=== PATIENT | female | born 1985 | race American Indian/Alaskan Native ===

== ENCOUNTER 2016-03-15 11:25 | Outpatient (CLI) | payer MEDICAID ==
--- NOTE | 2016-03-16 10:11 | Ultrasound Report ---
OB LIMITED: HISTORY: Premature rupture of membranes. TECHNIQUE: Transabdominal ultrasound with color Doppler interrogation. Gestation: tsai Position: cephalic Amniotic Fluid: SEEMA = 8.6 cm Heart Rate: 133 BPM
== END 2016-03-15 15:15 | disposition home or self-care (01) ==
LOC: TRG 11:25
PROVIDERS: ATTEND Obstetrics & Gynecology Gynecology
DX: O42.90 Premature rupture of membranes, unspecified as to length of time between rupture and onset of labor, unspecified weeks of gestation (principal); O47.9 False labor, unspecified; Z3A.00 Weeks of gestation of pregnancy not specified
CPT/HCPCS: 59025; 76815

== ENCOUNTER 2016-03-15 20:25 | Inpatient (IN) | payer MEDICAID ==
[2016-03-15] MEDS ORDERED: BRETHINE IVP PRN (22:14)
[2016-03-15] MEDS ORDERED: ZOFRAN IV PRN (22:14)
[2016-03-15] MEDS ORDERED: XYLOCAINE 2% INFILTRATI ONE (22:14)
[2016-03-15] MEDS ORDERED: POLYCILLIN/NS 2 GM/100 ML 2 GM/100 ML BAG IV ONE (22:14)
[2016-03-15] MEDS ORDERED: SUBLIMAZE IV PRN (22:14)
[2016-03-15] MEDS ORDERED: BRETHINE SUB-Q PRN (22:14)
[2016-03-15] MEDS ORDERED: ePHEDrine SULFATE IV PRN (22:14)
[2016-03-15] MEDS ORDERED: MINERAL OIL PO PRN (22:14)
--- NOTE | 2016-03-15 22:14 | History and Physical Report ---
History of Present Illness Date of examination: 03/15/16 Chief complaint: SROM History of present illness: 30-year-old 002 at 3905 presents with ruptured membranes, she is [facility] [employer] patient. care unremarkable per patient, she is GBS positive Past History Past Medical History: no pertinent history Past Surgical History: no surgical history [employer] INS[employer]OR History: denies: chlamydia, gonorrhea, hepatitis B, hepatitis C, herpes, HIV , syphilis Social history: single, full code. denies: smoking, alcohol abuse, prescription drug abuse, IV drug use - Obstetrical History Expected Date of Delivery: 03/17/16 Actual Gestation: 39 Week(s) 5 Day(s) : 3 Para: 2 Medications and Allergies Allergies Allergy/AdvReac Type Severity Reaction Status Date / Time No Known Allergies Allergy Unverified 03/15/16 20:38 Review of Systems Constitutional: no fever, no chills Cardiovascular: no chest pain, no orthopnea, no syncope, no lightheadedness, no shortness of breath, no dyspnea on exertion, no high blood pressure Respiratory: no shortness of breath, no dyspnea on exertion Gastrointestinal: abdominal pain (Painful contractions), no nausea, no vomiting , no diarrhea Genitourinary: leakage of fluid, no vaginal bleeding, no vaginal discharge, no dysuria - Vital Signs Vital signs: Vital Signs Pulse BP Pulse Ox 94 H 136/93 97 03/15/16 20:45 03/15/16 20:45 03/15/16 20:45 Temp Pulse Resp BP Pulse Ox 97 H 133/83 99 03/15/16 21:33 03/15/16 21:31 03/15/16 21:33 - Physical Exam Abdomen: Positive: normal appearance, soft. Negative: distention, tenderness, guarding, rigidity Genitourinary (Female): Positive: normal external genitalia Uterus: Positive: enlarged (EFW ~ 3600). Negative: tender Adnexa: both: normal Extremities: Positive: normal - Obstetrical FHR: category 1 Cervical Dilatation: 2.5 (per RN) Results All other labs normal. Assessment and Plan A: 30 y/o at 39+5 wks with SROM -Cat 1 tracing P: -Admit -Obtain routine labs -GBS prophylaxis' -Epidural prn -Anticipate - Patient Problems (1) with 39 completed weeks gestation Current Visit: Yes Status: Acute (2) Spontaneous rupture of amniotic membranes Current Visit: Yes Status: Acute
[2016-03-15 22:39] LABS: Hematocrit 30.9 % (30.3-42.9); Hemoglobin 10.1 gm/dl (10.1-14.3); Mean Corpuscular HGB Conc 33 % (30-34); Mean Corpuscular Volume 79 fl (79-97); Platelet Count 169 K/mm3 (140-440); Red Blood Count 3.91 M/mm3 (3.65-5.03); Red Cell Distribution Width 16.7 % (13.2-15.2); White Blood Count 9.1 K/mm3 (4.5-11.0)
[2016-03-15 22:46] LABS: Mean Corpuscular Hemoglobin 26 pg (28-32)
[2016-03-15] MEDS: LACTATED RINGERS 1,000 ML IV SCH (22:52)
[2016-03-15] MEDS ORDERED: PITOCin/NS 30 UNIT/500ML 30 UNIT/500 ML BAG IV SCH (23:00)
[2016-03-15] MEDS ORDERED: PITOCin/NS 20 UNIT/1000ML DRIP 20 UNIT/1,000 ML BAG IV SCH (23:00)
[2016-03-16] MEDS ORDERED: POLYCILLIN/NS 1 GM/50 ML 1 GM/50 ML BAG IV SCH (02:16)
[2016-03-16] MEDS ORDERED: BENADRYL PO ONE (02:31)
[2016-03-16] MEDS: PITOCin/NS 30 UNIT/500ML 30 UNIT/500 ML BAG IV SCH ×3 (06:15→07:17)
--- NOTE | 2016-03-16 06:58 | Progress Note ---
Assessment and Plan - Patient Problems (1) with 39 completed weeks gestation Current Visit: Yes Status: Acute (2) Spontaneous rupture of amniotic membranes Current Visit: Yes Status: Acute Subjective - Subjective Date of service: 03/16/16 Patient reports: movement normal, contractions, no loss of fluid, no vaginal bleeding Objective - Vital Signs Vital Signs: Vital Signs - 12hr 03/15/16 03/15/16 03/15/16 20:45 20:46 20:47 Temperature Pulse Rate 97 H 107 H 96 H Respiratory Rate Blood Pressure 136/93 Blood Pressure [Left Arm] O2 Sat by Pulse 98 98 97 Oximetry 03/15/16 03/15/16 03/15/16 20:48 20:49 20:50 Temperature Pulse Rate 98 H 100 H 98 H Respiratory Rate Blood Pressure Blood Pressure [Left Arm] O2 Sat by Pulse 98 97 98 Oximetry 03/15/16 03/15/16 03/15/16 20:51 20:52 20:53 Temperature Pulse Rate 97 H 108 H 102 H Respiratory Rate Blood Pressure Blood Pressure [Left Arm] O2 Sat by Pulse 98 98 99 Oximetry 03/15/16 03/15/16 03/15/16 20:54 20:55 20:56 Temperature Pulse Rate 98 H 110 H 121 H Respiratory Rate Blood Pressure Blood Pressure [Left Arm] O2 Sat by Pulse 99 99 99 Oximetry 03/15/16 03/15/16 03/15/16 20:57 20:58 20:59 Temperature Pulse Rate 101 H 98 H 105 H Respiratory Rate Blood Pressure Blood Pressure [Left Arm] O2 Sat by Pulse 98 99 98 Oximetry 03/15/16 03/15/16 03/15/16 21:00 21:01 21:02 Temperature Pulse Rate 91 H 97 H 94 H Respiratory Rate Blood Pressure Blood Pressure [Left Arm] O2 Sat by Pulse 98 98 97 Oximetry 03/15/16 03/15/16 03/15/16 21:03 21:04 21:05 Temperature Pulse Rate 94 H 96 H 93 H Respiratory Rate Blood Pressure Blood Pressure [Left Arm] O2 Sat by Pulse 97 97 97 Oximetry 03/15/16 03/15/16 03/15/16 21:06 21:07 21:08 Temperature Pulse Rate 93 H 89 88 Respiratory Rate Blood Pressure Blood Pressure [Left Arm] O2 Sat by Pulse 97 96 97 Oximetry 03/15/16 03/15/16 03/15/16 21:09 21:10 21:11 Temperature Pulse Rate 93 H 96 H 102 H Respiratory Rate Blood Pressure Blood Pressure [Left Arm] O2 Sat by Pulse 97 97 97 Oximetry 03/15/16 03/15/16 03/15/16 21:12 21:13 21:14 Temperature Pulse Rate 88 96 H 94 H Respiratory Rate Blood Pressure Blood Pressure [Left Arm] O2 Sat by Pulse 98 98 98 Oximetry 03/15/16 03/15/16 03/15/16 21:15 21:16 21:17 Temperature Pulse Rate 92 H 90 86 Respiratory Rate Blood Pressure Blood Pressure [Left Arm] O2 Sat by Pulse 99 99 99 Oximetry 03/15/16 03/15/16 03/15/16 21:18 21:19 21:20 Temperature Pulse Rate 89 89 90 Respiratory Rate Blood Pressure Blood Pressure [Left Arm] O2 Sat by Pulse 97 97 95 Oximetry 03/15/16 03/15/16 03/15/16 21:21 21:22 21:23 Temperature Pulse Rate 90 92 H 92 H Respiratory Rate Blood Pressure Blood Pressure [Left Arm] O2 Sat by Pulse 97 97 97 Oximetry 03/15/16 03/15/16 03/15/16 21:24 21:25 21:26 Temperature Pulse Rate 97 H 91 H 29 L Respiratory Rate Blood Pressure Blood Pressure [Left Arm] O2 Sat by Pulse 97 95 59 L Oximetry 03/15/16 03/15/16 03/15/16 21:27 21:28 21:29 Temperature Pulse Rate 94 H 90 93 H Respiratory Rate Blood Pressure Blood Pressure [Left Arm] O2 Sat by Pulse 99 99 97 Oximetry 03/15/16 03/15/16 03/15/16 21:30 21:31 21:32 Temperature Pulse Rate 87 94 H 96 H Respiratory Rate Blood Pressure 133/83 Blood Pressure [Left Arm] O2 Sat by Pulse 99 99 99 Oximetry 03/15/16 03/15/16 03/15/16 21:33 23:15 23:44 Temperature 97.7 F Pulse Rate 97 H 88 87 Respiratory 18 Rate Blood Pressure 122/77 124/76 Blood Pressure 124/76 [Left Arm] O2 Sat by Pulse 99 Oximetry 03/16/16 03/16/16 03/16/16 00:15 00:44 01:15 Temperature Pulse Rate 85 81 77 Respiratory Rate Blood Pressure 125/78 131/83 91/50 Blood Pressure [Left Arm] O2 Sat by Pulse Oximetry 03/16/16 03/16/16 03/16/16 01:46 02:16 06:03 Temperature Pulse Rate 74 93 H 85 Respiratory Rate Blood Pressure 123/85 98/59 117/66 Blood Pressure [Left Arm] O2 Sat by Pulse Oximetry 03/16/16 06:14 Temperature Pulse Rate 77 Respiratory Rate Blood Pressure 115/69 Blood Pressure [Left Arm] O2 Sat by Pulse Oximetry - Exam FHR: category 1 - Labs Labs: Abnormal Labs 03/15/16 22:20 MCH 26 L RDW 16.7 H Laboratory Results - last 24 hr 03/15/16 03/15/16 22:20 22:20 WBC 9.1 RBC 3.91 Hgb 10.1 Hct 30.9 MCV 79 MCH 26 L MCHC 33 RDW 16.7 H Plt Count 169 Blood Type O POSITIVE Antibody Screen Negative
[2016-03-16] MEDS: LACTATED RINGERS 1,000 ML IV SCH ×2 (07:17→08:10)
[2016-03-16] MEDS ORDERED: STADOL ONE (08:04)
[2016-03-16] MEDS ORDERED: BENADRYL ONE (08:29)
[2016-03-16] MEDS ORDERED: ePHEDrine SULFATE ONE (08:38)
[2016-03-16] MEDS ORDERED: ePHEDrine SULFATE IV PRN (09:08)
[2016-03-16] MEDS ORDERED: NARCAN 2 MG/2 ML IV PRN (09:08)
[2016-03-16] MEDS ORDERED: PEPCID IV ONE (09:37)
[2016-03-16] MEDS ORDERED: REGLAN ONE ×2 (09:37)
[2016-03-16] MEDS ORDERED: ANCEF/STERILE WATER 2 GM/20 ML 2 GM/20 ML SYRINGE IV ONE (09:37)
[2016-03-16] MEDS ORDERED: BICITRA ONE (09:37)
--- NOTE | 2016-03-16 09:42 | Admit Criteria Form ---
Admission Criteria Documentation: OBSTETRIC AND GYNECOLOGIC DISEASE GRG Clinical Indications for Admission to Inpatient Care (Place 'X' for any and all applicable criteria): Hospital admission is needed for appropriate care of the patient because of ANY ONE of the following (1)(2)(3): [ ]I. Hemodynamic instability, as indicated by ALL of the following (1)(2)(3)( 4)(5): [ ]a) Vital signs or other findings not as expected for chronic patient condition or baseline [ ]b) Instability indicated by ANY ONE of the following: [ ]i) Hypotension [ ]ii) Symptomatic tachycardia unresponsive to treatment (eg, analgesia, fluids, sedation as indicated) [ ]iii) Inadequate perfusion indicated by ANY ONE of the following: [ ]A. Lactic acidosis (greater than 2 mmol/ L) [ ]B. New abnormal capillary refill ( greater than 3 seconds) [ ]C. Reduced urine output [ ]D. New altered mental status [ ]iv) Orthostatic vital sign changes unresponsive to treatment (eg, fluids) [ ]v) Multiple IV fluid boluses required to maintain adequate blood pressure or perfusion [ ]vi) IV inotropic or vasopressor medication required to maintain adequate blood pressure or perfusion [ ]II. Obstetric infection requiring hospitalization indicated by ANY ONE of the following(13)(14): [ ]a) Chorioamnionitis [ ]b) Endometritis (except mild endometritis) [ ]c) Pelvic abscess [ ]d) Peritonitis [ ]e) Septic pelvic thrombophlebitis [ ]III. Amniotic fluid or pulmonary embolism(4)(5)(6) [ ]IV. Suspected peritonitis or ectopic requiring monitoring beyond scope of 24 hours or observation care(7)(8) [ ]V. compromise requiring hospitalization indicated by ALL of the following(9)(10): [ ]a) compromise indicated by ANY ONE of the following(11): [ ]i) Abnormal heart rate monitoring [ ]ii) Abnormal contraction stress test [ ]iii) Abnormal biophysical profile [ ]iv) Abnormal Doppler flow in vessels (ie, Doppler velocimetry) (12) [ ]b) Persistence of compromise indicators during evaluation and observation monitoring [ ]. Ovarian hyperstimulation syndrome requiring hospitalization[A] indicated by ALL of the following(15): [ ]a) Recent ovarian stimulation with gonadotropins, or evidence on ultrasound of spontaneous emergence of large number of ovarian follicles [ ]b) Evidence of severe ovarian hyperstimulation syndrome indicated by ANY ONE of the following: [ ]i) Abdominal pain unresponsive to oral therapy [ ]ii) Acute respiratory distress syndrome [ ]iii) Electrolyte imbalance ( eg, hyponatremia, hyperkalemia) [ ]iv) Elevated liver enzymes [ ]v) Evidence of thromboembolism [ ]vi) Hemoconcentration (hematocrit greater than 45 % (0.45)) [ ]vii) Inability to maintain oral intake adequate to prevent hemoconcentration [ ]viii) Marked hypotension from baseline (eg, SBP 20 mmHg below patients usual pressure) [ ]ix) Oliguria or anuria [ ]x) Ovarian torsion [ ]xi) Pleural or pericardial effusion on x-ray or echocardiogram [ ]xii) Rapid increase in serum creatinine to greater than 1.2 mg/dL (106 micromoles/L) or creatinine clearance less than 50 mL/min/1.73m2 (0.84 mL/ sec/1.73m2) [ ]xiii) Ruptured ovarian cyst with hemorrhage [ ]xiv) Severe abdominal pain or peritoneal signs [ ]xv) Tense ascites that cannot be managed with paracentesis in outpatient setting [ ]VII.Pelvic infection requiring hospitalization indicated by ANY ONE of the following (16): [ ]a) Outpatient treatment has failed or is not appropriate (eg, inpatient monitoring required) [ ]b) Pelvic abscess [ ]c) Surgical emergency cannot be excluded (eg, rigid abdomen) [ ]d) Vomiting precluding outpatient and observation care management VIII. loss complications requiring inpatient medical treatment indicated by ANY ONE of the following (4)(7)(9): [ ]a) Fever [ ]b) Peritonitis [ ]c) Sepsis [ ]d) Severe abdominal pain [ ]IX. or patient requiring monitoring for severe heart failure, pulmonary disease, or other comorbid condition (eg, peripartum cardiomyopathy) (4)(17) [ ]X. patient with rupture of membranes requiring hospitalization indicated by ANY ONE of the following: [ ]a) Chorioamnionitis, cloudy amniotic fluid, or other evidence of infection [ ]b) compromise or other need for monitoring (11) [ ]c) Gestation longer than 23 weeks and ANY ONE of the following: [ ]i) Abnormal (noncephalic) presentation [ ]ii) Inadequate home environment (eg, home too far from hospital, unable to rapidly return to hospital) [ ]d) Temperature greater than 100.4 degrees F (38 degrees C)( oral) [ ]e) Threatened labor requiring monitoring beyond scope (eg, over 24 hours) of observation Care [ ] XI. complications, including severe lacerations, infections, or retained placenta (19) [ ] XII.Uterine bleeding with high-risk features indicated by ANY ONE of the following (4): [ ]a) Active major hemorrhage (eg, hemorrhage) [ ]b) Coagulopathy with active bleeding [ ]c) Gestational trophoblastic disease (eg, molar ) (20 ) [ ]d) (longer than 23 weeks) and ANY ONE of the following: [ ]i) Pain [ ]ii) Placental abruption, known or suspected [ ]iii) Placenta accrete, known or suspected(21) [ ]iv) Placenta previa, known or suspected [ ]v) Vasa previa [ ]e) Severe anemia [X ]XIII. Obstetric or Gynecologic Disease, condition or symptom for which ANY ONE of the following: [ X]a) Emergency and observation care have failed or are not considered appropriate ( Also use General Criteria: Observation Care Criteria as appropriate) [ ]b) Presence of a General Admission Criteria or Pediatric General Admission Criteria The original [facility] content created by [facility] has been revised. The portions of the content which have been revised are identified through the use of italic text or in bold, and [facility] has neither reviewed nor approved the modified material.All other unmodified content is copyright [facility]. Please see references footnoted in the original [facility] edition 2016 Admission Criteria Met: Yes
--- NOTE | 2016-03-16 09:44 | Anesthesia Consultation ---
Anesthesia Consult and Med Hx Date of service: 03/16/16 - Airway Anesthetic Teeth Evaluation: Good ROM Head & Neck: Adequate Mental/Hyoid Distance: Adequate Mallampati Class: Class II Intubation Access Assessment: Probably Good - Pulmonary Exam CTA: Yes - Cardiac Exam Cardiac Exam: RRR - Pre-Operative Health Status ASA Pre-Surgery Classification: ASA2 Proposed Anesthetic Plan: Epidural, Spinal - Pre-Anesthesia Comment Pre-Anesthesia Comments: at 39 weeks GA in labor. - Pulmonary Hx Smoking: No Hx Asthma: No - Cardiovascular System Hx Hypertension: No - Central Nervous System Hx Psychiatric Problems: No - Endocrine Hx Renal Disease: No Hx Hypothyroidism: No Hx Hyperthyroidism: No - Hematic Hx Anemia: No Hx Sickle Cell Disease: No - Other Systems Hx Alcohol Use: No
[2016-03-16] MEDS ORDERED: fentaNYL-BUPIV 2 MCG/ML-0.125% 200 MCG/100 ML BAG EPIDURAL SCH (10:00)
--- NOTE | 2016-03-16 10:10 | Event Note ---
Date: 03/16/16 Status post epidural now 7 cm and bulging. AROM with clear fluid, and prolonged decelerations noted. No resolution with changing position, Oxygen and fluids. Pitocin stopped and she was transfered to the OR where her HR recovered. She is currently 8-9 cm and -1 station Plan is observation for now
[2016-03-16] MEDS ORDERED: METHERGINE IM ONE (11:15)
--- NOTE | 2016-03-16 11:25 | Procedure Note ---
OB Delivery Note - Delivery Date of Delivery: 03/16/16 Surgeon: LOUIE MIRELES Estimated blood loss: other (400 mls) - Vaginal Delivery presentation: vertex Delivery position: OA Intrapartum events: extend. bradycardia, mult. late decelerations Delivery induction: none Delivery augmentation: rupture of membranes, pitocin Delivery monitor: external FHT, external uterine Route of delivery: Delivery placenta: spontaneous Delivery cord: nuchal cord, 3 umbilical vessels Episiotomy: none Delivery laceration: 2nd degree Delivery repair: vicryl Anesthesia: epidural - Infant A at 1 minute: 9 at 5 minutes: 9 Infant Gender: Female (Del @ 11:10, weight is 6#5 or 2867 gms)
[2016-03-16] MEDS ORDERED: METHERGINE IM PRN (11:26)
[2016-03-16] MEDS ORDERED: TYLENOL PO PRN (11:26)
[2016-03-16] MEDS ORDERED: TUCKS PAD TP PRN (11:26)
[2016-03-16] MEDS ORDERED: DULCOLAX PR PRN (11:26)
[2016-03-16] MEDS ORDERED: NORCO 5/325 PO PRN (11:26)
[2016-03-16] MEDS ORDERED: ZOFRAN IV PRN (11:26)
[2016-03-16] MEDS ORDERED: DERMOPLAST TP PRN (11:26)
[2016-03-16] MEDS ORDERED: MILK OF MAGNESIA PO PRN (11:26)
[2016-03-16] MEDS ORDERED: BENADRYL PO PRN (11:26)
[2016-03-16] MEDS ORDERED: PHENERGAN PR PRN (11:26)
[2016-03-16] MEDS ORDERED: PHENERGAN PO PRN (11:26)
[2016-03-16] MEDS ORDERED: ANUCORT-HC PR PRN (11:26)
[2016-03-16] MEDS ORDERED: LANSINOH TP PRN (11:26)
[2016-03-16] MEDS ORDERED: SENOKOT S PO SCH (12:00)
[2016-03-16] MEDS ORDERED: SODIUM CHLORIDE FLUSH SYRINGE 10 ML IV NR (12:00)
[2016-03-16] MEDS ORDERED: PITOCin/NS 20 UNIT/1000ML DRIP 20 UNIT/1,000 ML BAG IV SCH (12:00)
[2016-03-16] MEDS: MOTRIN PO SCH ×2 (14:22→23:25)
[2016-03-16] MEDS ORDERED: COLACE PO SCH (22:00)
[2016-03-16] MEDS ORDERED: FEOSOL PO SCH (22:00)
[2016-03-16 23:50] LABS: Hematocrit 30.4 % (30.3-42.9); Hemoglobin 9.8 gm/dl (10.1-14.3)
[2016-03-17] MEDS: MOTRIN PO SCH ×2 (05:30→12:15)
[2016-03-17] MEDS ORDERED: BOOSTRIX IM ONE (06:00)
[2016-03-17] MEDS ORDERED: PRENATAL VITAMIN PO SCH (10:00)
--- NOTE | 2016-03-17 10:06 | Progress Note ---
Assessment and Plan - Patient Problems (1) (normal spontaneous vaginal delivery) Onset Date: 03/17/16 Current Visit: Yes Status: Resolved Plan to address problem: A: S/P - PPD #1 Doing well Anemia - asymptomatic P: May go home today. Subjective - Subjective Date of service: 03/17/16 Principal diagnosis: s/p - PPD #1 Interval history: Pt is feeling well without complaints. Bleeding improved but still moderate. Patient reports: appetite normal, voiding normally, pain well controlled, flatus , ambulating normally : doing well Objective - Vital Signs Latest vital signs: Vital Signs Temp Pulse Pulse Pulse Resp BP BP 03/17/16 08:58 98.4 F 76 20 03/17/16 00:00 98.2 F 93 H 20 131/72 03/16/16 20:00 98.1 F 90 18 128/74 03/16/16 16:01 98.8 F 78 18 120/78 03/16/16 13:20 98.1 F 88 18 137/88 03/16/16 12:15 97.6 F 78 131/75 131/75 03/16/16 11:01 77 03/16/16 10:56 67 03/16/16 10:51 70 03/16/16 10:46 69 03/16/16 10:41 71 03/16/16 10:36 69 03/16/16 10:31 67 03/16/16 10:26 68 03/16/16 10:21 77 03/16/16 10:15 18 BP Pulse Ox 03/17/16 08:58 118/60 03/17/16 00:00 03/16/16 20:00 03/16/16 16:01 03/16/16 13:20 03/16/16 12:15 03/16/16 11:01 100 03/16/16 10:56 100 03/16/16 10:51 100 03/16/16 10:46 100 03/16/16 10:41 100 03/16/16 10:36 100 03/16/16 10:31 100 03/16/16 10:26 100 03/16/16 10:21 100 03/16/16 10:15 Intake and Output 03/16/16 03/17/16 03/17/16 22:59 06:59 14:59 Intake Total 960 120 240 Output Total 700 Balance 260 120 240 Intake: Oral 480 120 240 Intake, Free Water 480 Output: Urine 700 Void 700 Other: Total, Intake Amount 240 120 240 Total, Output Amount 700 # Voids Void 1 1 - Exam Breasts: Present: deferred Cardiovascular: Present: Regular rate Lungs: Present: Clear to auscultation Abdomen: Present: normal appearance, soft Uterus: Present: normal, firm, fundal height below umbilicus Extremities: Present: normal - Labs Labs: Abnormal lab results 03/16/16 Range/Units 23:25 Hgb 9.8 L (10.1-14.3) gm/dl Laboratory Tests 03/15/16 03/15/16 03/16/16 22:20 22:20 23:25 WBC 9.1 RBC 3.91 Hgb 10.1 9.8 L Hct 30.9 30.4 MCV 79 MCH 26 L MCHC 33 RDW 16.7 H Plt Count 169 Blood Type O POSITIVE Antibody Screen Negative
--- NOTE | 2016-03-17 10:07 | Discharge Summary ---
Providers - Providers Date of Admission: 03/16/16 14:22 Date of discharge: 03/17/16 Attending physician: LOUIE MIRELES Primary care physician: LOUIE MIRELES Hospitalization Reason for admission: active labor, rupture of membranes, IUP at term Delivery: Episiotomy: none Laceration: 2nd degree Other procedures: none complications: none Discharge diagnosis: IUP at term delivered [place] baby: female Hospital course: Unremarkable Condition at discharge: Good Disposition: DISCHARGED TO HOME OR SELFCARE - Discharge Diagnoses (1) (normal spontaneous vaginal delivery) Status: Resolved Plan - Discharge Medications Prescriptions: HYDROcodone/APAP 5-325 [Cabot 5/325] 1 each PO Q6HR PRN #10 tablet PRN Reason: Pain Ibuprofen [Motrin 600 MG tab] 600 mg PO Q8H PRN #30 tablet PRN Reason: Pain Multivitamin with Iron [Multivitamins with Iron] 1 each PO DAILY #30 tablet - Provider Discharge Summary Activity: routine, no sex for 6 weeks, no heavy lifting 4 weeks, no strenuous exercise Diet: routine Instructions: routine Additional instructions: [] Smoking cessation referral if applicable(refer to patient education folder for contact #) [] Refer to [facility]'s [facility] Booklet Call your doctor immediately for: * Fever > 100.5 * Heavy vaginal bleeding ( >1 pad per hour) * Severe persistent headache * Shortness of breath * Reddened, hot, painful area to leg or breast * Drainage or odor from incision. * Keep incision clean and dry at all times and follow doctor's instructions regarding bathing/showering - Follow up plan Follow up: LOUIE MIRELES MD [Primary Care Provider] - 6 Weeks Forms: Work/School Excuse Out Patient
--- NOTE | 2016-03-17 14:02 | Progress Note ---
Subjective Date of service: 03/16/16 Principal diagnosis: s/p - PPD #1 Interval history: 1 Day post-delivery with epidural. Patient states tolerated epidural well, pain is well controlled, no residual weakness in legs, minimal back pain, no anesthetic complications, and has been ambulating well. Objective - Constitutional Vitals: Vital Signs - 12hr 03/17/16 03/17/16 08:58 12:00 Temperature 98.4 F 98.1 F Pulse Rate [ 76 64 Right Radial] Respiratory 20 22 Rate Blood Pressure 130/82 [Left Arm] Blood Pressure 118/60 [Right Arm] - Labs CBC & Chem 7: 03/16/16 23:25 Labs: Abnormal lab results 03/16/16 Range/Units 23:25 Hgb 9.8 L (10.1-14.3) gm/dl
[2016-03-17 16:31] VITALS: BP 140/88
== END 2016-03-17 15:00 | disposition home or self-care (01) | DRG 775 ==
LOC: TRG 20:25 → LD 22:29 → OB 03-16 13:37 → OBSVTOIN 03-16 14:22
PROVIDERS: ADMIT Obstetrics & Gynecology Gynecology; ATTEND Obstetrics & Gynecology Gynecology
PROC: 10E0XZZ Delivery of Products of Conception, External Approach (ICD-10-PCS; principal; 2016-03-16)
PROC: 0KQM0ZZ Repair Perineum Muscle, Open Approach (ICD-10-PCS; 2016-03-16)
PROC: 3E0S3CZ (ICD-10-PCS; 2016-03-16)
PROC: 00HU33Z Insertion of Infusion Device into Spinal Canal, Percutaneous Approach (ICD-10-PCS; 2016-03-16)
DX: O69.81X0 Labor and delivery complicated by cord around neck, without compression, not applicable or unspecified (principal); O76 Abnormality in fetal heart rate and rhythm complicating labor and delivery; O70.1 Second degree perineal laceration during delivery; Z3A.39 39 weeks gestation of pregnancy; Z37.0 Single live birth; Z23 Encounter for immunization
CPT/HCPCS: 36415; 85014; 85018; 85027; 86850; 86900; 86901; 90471; 90715; 99211; A6250; G0378; G0463; J0290; J0595; J0690; J1200; J2210; J2405; J2590; J2765; J3010; J7120

== ENCOUNTER 2018-09-26 09:49 | Emergency (ER) | payer MEDICAID ==
[2018-09-26 10:08] VITALS: BP 122/81
[2018-09-26 10:36] LABS: Basophils # (Auto) 0.1 K/mm3 (0.0-0.1); Basophils % (Auto) 1.1 % (0.0-1.8); Eosinophils # (Auto) 0.1 K/mm3 (0.0-0.4); Hematocrit 39.3 % (30.3-42.9); Lymphocytes # (Auto) 2.7 K/mm3 (1.2-5.4); Mean Corpuscular HGB Conc 33 % (30-34); Mean Corpuscular Volume 86 fl (79-97); Monocytes # (Auto) 0.5 K/mm3 (0.0-0.8); Monocytes % (Auto) 7.6 % (0.0-7.3); Platelet Count 251 K/mm3 (140-440); Red Blood Count 4.57 M/mm3 (3.65-5.03); Red Cell Distribution Width 14.5 % (13.2-15.2)
[2018-09-26 11:09] LABS: Alanine Aminotransferase 16 units/L (7-56); Albumin 4.4 g/dL (3.9-5); BUN/Creatinine Ratio 22; Blood Urea Nitrogen 13 mg/dL (7-17); Calcium 9.4 mg/dL (8.4-10.2); Hemolysis Index 2
[2018-09-26 11:23] LABS: Bacteria,Urine 1+ /HPF (Negative); Bilirubin,Urine NEG (Negative); Blood,Urine NEG (Negative); Color,Urine Yellow (Yellow); Mucus,Urine 3+ /HPF; Protein,Urine <15 mg/dL mg/dL (Negative)
--- NOTE | 2018-09-26 11:46 | Emergency Department Report ---
HPI - General Chief Complaint: Abdominal Pain Time Seen by Provider: 09/26/18 11:01 - [facility] HPI: Room 24 The patient is a 32-year-old female presented with a chief complaint of lower abdominal pain. The patient says she's had lower abdominal pain intermittently for one week. Patient describes pain as sharp in nature. Patient admits to nausea but denies vomiting. Patient denies dysuria or hematuria but admits to urinary frequency. Patient denies vaginal bleeding. The patient states her menses is irregular but her last normal cycle occurred July 2018. The patient says she took a home test which was negative 2 days ago. Location: [See above] Duration: [See above] Quality: [See above] Severity: [See above] Modifying factors: [see above] Context: [see above] Mode of transportation: [not driving] ED Past Medical Hx - Past Medical History Previous Medical History?: Yes - Surgical History Past Surgical History?: No - Family History Family history: no significant - Social History Smoking Status: Never Smoker Substance Use Type: None - Medications Home Medications: Home Medications Medication Instructions Recorded Confirmed Last Taken Type HYDROcodone/APAP 5-325 [[place] 1 each PO Q6HR PRN #10 tablet 03/16/16 Unknown Rx 5/325] Ibuprofen [Motrin 600 MG tab] 600 mg PO Q8H PRN #30 tablet 03/16/16 Unknown Rx Multivitamin with Iron 1 each PO DAILY #30 tablet 03/16/16 Unknown Rx [Multivitamins with Iron] Metoclopramide [Reglan] 10 mg PO TID PRN #20 tab 09/26/18 Unknown Rx ED Review of Systems ROS: Stated complaint: ABD/BACK PAIN Other details as noted in HPI Constitutional: denies: fever Eyes: denies: eye pain ENT: denies: throat pain Respiratory: no symptoms reported Cardiovascular: denies: chest pain Endocrine: no symptoms reported Gastrointestinal: abdominal pain, nausea. denies: vomiting Genitourinary: frequency. denies: dysuria, hematuria, abnormal menses Musculoskeletal: denies: back pain Neurological: denies: headache Physical Exam - Physical Exam Vital Signs: Vital Signs 09/26/18 10:06 Temperature 99.2 F Pulse Rate 96 H Blood Pressure 122/81 O2 Sat by Pulse 100 Oximetry Physical Exam: GENERAL: The patient is well-developed well-nourished female lying on stretcher not appear to be in acute distress. [] HEENT: Normocephalic. Atraumatic. Extraocular motions are intact. Patient has moist mucous membranes. NECK: Supple. Trachea midline CHEST/LUNGS: Clear to auscultation. There is no respiratory distress noted. HEART/CARDIOVASCULAR: Regular. There is no tachycardia. There is no gallop rub or murmur. ABDOMEN: Abdomen is soft, mild suprapubic discomfort to palpation. There is no rebound or guarding. Patient has normal bowel sounds. There is no abdominal distention. SKIN: There is no rash. There is no edema. There is no diaphoresis. NEURO: The patient is awake, alert, and oriented. The patient is cooperative. The patient has normal speech MUSCULOSKELETAL: There is no evidence of acute injury. ED Course Vital Signs 09/26/18 10:06 Temperature 99.2 F Pulse Rate 96 H Blood Pressure 122/81 O2 Sat by Pulse 100 Oximetry ED Medical Decision Making - Lab Data Result diagrams: 09/26/18 10:21 09/26/18 10:21 - Radiology Data Radiology results: report reviewed (pelvic ultrasound), image reviewed (pelvic ultrasound) [facility] [address] [place] [address] Ultrasound Report Signed Patient: AKBAR ODEN MR#: [id number] : 1985 Acct:[id number] Age/Sex: 32 / F ADM Date: 09/26/18 Loc: ED Attending Dr: Ordering Physician: JORGE ALBERTO PANIAGUA MD Date of Service: 09/26/18 Procedure(s): US OB transvaginal Accession Number(s): [id number] cc: JORGE ALBERTO PANIAGUA MD ULTRASOUND OB LESS THAN EQUAL TO 14 WEEKS FETUS ULTRASOUND OB TRANSVAGINAL HISTORY: Lower abdominal pain during COMPARISON: None. TECHNIQUE: Routine transabdominal and transvaginal OB ultrasound performed. FINDINGS: Uterus: The uterus measures 9.7 x 5.5 x 6.0 cm. Gestational Sac: Well-defined oval shape and intrauterine in location. Average gestational sac diameter measures 4.7 mm which correlates with a 5 week 2 day . Yolk Sac: Normal in appearance. Fetus/Embryo: Not seen. Embryonic/ cardiac activity: Not identified Ovaries: The right ovary is normal in size and appearance with normal blood flow, measuring 2.7 x 1.7 x 2.3 cm. A simple 2.0 cm right ovarian cyst is identified. The left ovary is normal in size and appearance with normal blood flow, measuring 4.3 x 2.3 x 2.7 cm. A 1.9 cm complex cyst is identified in the left ovary which may represent a corpus luteum cyst. Additional findings: None. IMPRESSION A tiny gestational sac containing a yolk sac is identified in the endometrial canal. No pole or heart tones could be demonstrated at this time. This could represent a very early normal intrauterine . Close interval follow-up is recommended. 2 cm simple right ovarian cyst. 1.9 cm complex cyst in the left ovary. Signer Name: Alvaro Rangel Jr, MD Signed: 09/26/2018 1:55 PM Workstation Name: [id number] Transcribed By: TTR Dictated By: ALVARO RANGEL JR, MD Electronically Authenticated By: ALVARO RANGEL JR, MD Signed Date/Time: 09/26/18 135 DD/ 1351 TD/TT: - Differential Diagnosis , ectopic , gastritis, UTI Critical care attestation.: If time is entered above; I have spent that time in minutes in the direct care of this critically ill patient, excluding procedure time. ED Disposition Clinical Impression: Disposition: DC-01 TO HOME OR SELFCARE Is pt being admited?: No Does the pt Need Aspirin: No Condition: Stable Instructions: Abdominal Pain (ED) Additional Instructions: Return to the emergency department immediately should you develop worsening symptoms, fever, inability to tolerate food or liquid or any other concerns. Prescriptions: Metoclopramide [Reglan] 10 mg PO TID PRN #20 tab PRN Reason: Vomiting Referrals: PRIMARY CARE, [Referring] - 3-5 Days [facility] [Outside] - 3-5 Days EDWARDO STARR MD [Staff Physician] - 3-5 Days (Dr. Starr is an [employer]. Please follow up with her for further evaluation) Time of Disposition: 14:33
--- NOTE | 2018-09-26 14:00 | Ultrasound Report ---
ULTRASOUND OB LESS THAN EQUAL TO 14 WEEKS FETUS ULTRASOUND OB TRANSVAGINAL HISTORY: Lower abdominal pain during COMPARISON: None. TECHNIQUE: Routine transabdominal and transvaginal OB ultrasound performed. FINDINGS: Uterus: The uterus measures 9.7 x 5.5 x 6.0 cm. Gestational Sac: Well-defined oval shape and intrauterine in location. Average gestational sac diame ter measures 4.7 mm which correlates with a 5 week 2 day . Yolk Sac: Normal in appearance. Fetus/Embryo: Not seen. Embryonic/ cardiac activity: Not identified Ovaries: The right ovary is normal in size and appearance with normal blood flow, measuring 2.7 x 1. 7 x 2.3 cm. A simple 2.0 cm right ovarian cyst is identified. The left ovary is normal in size and ap pearance with normal blood flow, measuring 4.3 x 2.3 x 2.7 cm. A 1.9 cm complex cyst is identified in the left ovary which may represent a corpus luteum cyst. Additional findings: None. IMPRESSION A tiny gestational sac containing a yolk sac is identified in the endometrial canal. No pole or heart tones could be demonstrated at this time. This could represent a very early normal intra uterine . Close interval follow-up is recommended. 2 cm simple right ovarian cyst. 1.9 cm complex cyst in the left ovary. Signer Name: Alvaro Rangel Jr, MD Signed: 09/26/2018 1:55 PM Workstation Name: [id number]
== END 2018-09-26 14:50 | disposition home or self-care (01) ==
LOC: ED 09:49
DX: O26.891 Other specified pregnancy related conditions, first trimester (principal); R10.30 Lower abdominal pain, unspecified; R11.0 Nausea; Z3A.01 Less than 8 weeks gestation of pregnancy
CPT/HCPCS: 36415; 76801; 76817; 80053; 81001; 83690; 84702; 84703; 85025; 99284

== ENCOUNTER 2018-10-10 11:47 | Emergency (ER) | payer OTHER ==
--- NOTE | 2018-10-10 11:57 | Event Note ---
ED Screening Note Date of service: 10/10/18 Time: 11:53 ED Screening Note: 32 y o presents at at 7 weeks cc of n/v/davis and fatigue This initial assessment/diagnostic orders/clinical plan/treatment(s) is/are subject to change based on patients health status, clinical progression and re- assessment by fellow clinical providers in the ED. Further treatment and workup at subsequent clinical providers discretion. Patient/guardian urged not to elope from the ED as their condition may be serious if not clinically assessed and managed. Initial orders include: ua,upt,bmp,cbc IVF, zofran
[2018-10-10 12:24] LABS: HCG Qualitative,Urine Positive (Negative)
[2018-10-10 12:29] LABS: Bilirubin,Urine NEG (Negative); Blood,Urine NEG (Negative); Color,Urine Yellow (Yellow); Mucus,Urine 3+ /HPF; Protein,Urine <15 mg/dL mg/dL (Negative)
[2018-10-10 12:35] LABS: WBC,Urine < 1.0 /HPF (0.0-6.0)
[2018-10-10 12:38] LABS: Basophils # (Auto) 0.1 K/mm3 (0.0-0.1); Basophils % (Auto) 0.7 % (0.0-1.8); Eosinophils % (Auto) 0.7 % (0.0-4.3); Hematocrit 38.5 % (30.3-42.9); Hemoglobin 13.3 gm/dl (10.1-14.3); Lymphocytes # (Auto) 2.5 K/mm3 (1.2-5.4); Lymphocytes % (Auto) 33.8 % (13.4-35.0); Mean Corpuscular HGB Conc 34 % (30-34); Mean Corpuscular Volume 84 fl (79-97); Monocytes # (Auto) 0.6 K/mm3 (0.0-0.8); Monocytes % (Auto) 8.5 % (0.0-7.3); Platelet Count 251 K/mm3 (140-440); Red Blood Count 4.57 M/mm3 (3.65-5.03); Red Cell Distribution Width 14.4 % (13.2-15.2)
[2018-10-10] MEDS: NACL 0.9% 1000 ML 1,000 ML IV ONE (13:00)
[2018-10-10 13:01] LABS: BUN/Creatinine Ratio 18; Blood Urea Nitrogen 9 mg/dL (7-17); Calcium 9.6 mg/dL (8.4-10.2); Hemolysis Index 2
[2018-10-10] MEDS: ZOFRAN IV ONE (13:01)
[2018-10-10] MEDS: ZOFRAN IM ONE (13:01)
--- NOTE | 2018-10-10 13:20 | Emergency Department Report ---
ED HPI - General Chief complaint: Nausea/Vomiting/Diarrhea Stated complaint: NAUSE/VOMING 7WKS PREG Time Seen by Provider: 10/10/18 11:52 Source: patient, old records reviewed Mode of arrival: Ambulatory Limitations: No Limitations - History of Present Illness Initial comments: 32-year-old female currently presents to the hospital with complaints of nausea and vomiting since September 26 with very little by mouth tolerance 1 week. Patient was seen here on September and had a ultrasound showing a tiny gestational sac containing a yellow sac in the endometrial canal without a pole or heartbeat. Patient has been unable to follow up that she is waiting for her Medicaid to become active. Patient complains of overall fatigue, tired, and aching feeling. She denies fever, dysuria, hematemesis, hematochezia, diarrhea, dysuria, vaginal bleeding, or abdominal cramps. - Related Data Previous Rx's Medication Instructions Recorded Last Taken Type HYDROcodone/APAP 5-325 [[place] 1 each PO Q6HR PRN #10 tablet 03/16/16 Unknown Rx 5/325] Ibuprofen [Motrin 600 MG tab] 600 mg PO Q8H PRN #30 tablet 03/16/16 Unknown Rx Multivitamin with Iron 1 each PO DAILY #30 tablet 03/16/16 Unknown Rx [Multivitamins with Iron] Metoclopramide [Reglan] 10 mg PO TID PRN #20 tab 09/26/18 Unknown Rx Ondansetron [Zofran Odt] 4 mg PO Q8HR PRN #20 tab.rapdis 10/10/18 Unknown Rx Allergies Allergy/AdvReac Type Severity Reaction Status Date / Time No Known Allergies Allergy Verified 10/10/18 11:48 ED Review of Systems ROS: Stated complaint: NAUSE/VOMING 7WKS PREG Other details as noted in HPI Comment: All other systems reviewed and negative ED Past Medical Hx - Past Medical History Previous Medical History?: No Hx Hypertension: No Hx Diabetes: No Hx Deep Vein Thrombosis: No Hx Renal Disease: No Hx Sickle Cell Disease: No Hx Asthma: No Hx HIV: No - Surgical History Past Surgical History?: No - Social History Smoking Status: Never Smoker Substance Use Type: None - Medications Home Medications: Home Medications Medication Instructions Recorded Confirmed Last Taken Type HYDROcodone/APAP 5-325 [[place] 1 each PO Q6HR PRN #10 tablet 03/16/16 Unknown Rx 5/325] Ibuprofen [Motrin 600 MG tab] 600 mg PO Q8H PRN #30 tablet 03/16/16 Unknown Rx Multivitamin with Iron 1 each PO DAILY #30 tablet 03/16/16 Unknown Rx [Multivitamins with Iron] Metoclopramide [Reglan] 10 mg PO TID PRN #20 tab 09/26/18 Unknown Rx Ondansetron [Zofran Odt] 4 mg PO Q8HR PRN #20 tab.rapdis 10/10/18 Unknown Rx ED Physical Exam - General Limitations: No Limitations - Other Other exam information: General: No acute distress Head: Atraumatic Eyes: Normal appearance, Pupils equal and reactive to light, extraocular movements intact ENT: Normal oropharynx Neck: Normal appearance, no posterior or midline tenderness, no meningismus Chest: Clear to auscultation bilaterally, no wheezes, rales, or crackles CV: Regular rate and rhythm Abdomen: soft, normal bowel sounds, nontender, nondistended, no rebound or guarding Back: Nontender Extremity: Normal inspection, full range of motion, nontender Neuro: Alert and oriented 3, speech clear, no gross motor or sensory deficit Skin: No rash, redness, warmth ED Course Vital Signs 10/10/18 11:56 Temperature 97.5 F L Pulse Rate 87 Respiratory 20 Rate Blood Pressure 114/78 O2 Sat by Pulse 100 Oximetry ED Medical Decision Making - Lab Data Result diagrams: 10/10/18 12:22 10/10/18 12:22 Lab Results 10/10/18 10/10/18 10/10/18 Range/Units 12:22 12:22 13:10 WBC 7.5 (4.5-11.0) K/mm3 RBC 4.57 (3.65-5.03) M/mm3 Hgb 13.3 (10.1-14.3) gm/dl Hct 38.5 (30.3-42.9) % MCV 84 (79-97) fl MCH 29 (28-32) pg MCHC 34 (30-34) % RDW 14.4 (13.2-15.2) % Plt Count 251 (140-440) K/mm3 Lymph % (Auto) 33.8 (13.4-35.0) % [place] % (Auto) 8.5 H (0.0-7.3) % Eos % (Auto) 0.7 (0.0-4.3) % Baso % (Auto) 0.7 (0.0-1.8) % Lymph # 2.5 (1.2-5.4) K/mm3 Lyon # 0.6 (0.0-0.8) K/mm3 Eos # 0.0 (0.0-0.4) K/mm3 Baso # 0.1 (0.0-0.1) K/mm3 Seg Neutrophils % 56.3 (40.0-70.0) % Seg Neutrophils # 4.2 (1.8-7.7) K/mm3 Sodium 138 (137-145) mmol/L Potassium 3.6 (3.6-5.0) mmol/L Chloride 100.8 (98-107) mmol/L Carbon Dioxide 24 (22-30) mmol/L Anion Gap 17 mmol/L BUN 9 (7-17) mg/dL Creatinine 0.5 L (0.7-1.2) mg/dL Estimated GFR > 60 ml/min BUN/Creatinine Ratio 18 % Glucose 101 H (65-100) mg/dL Calcium 9.6 (8.4-10.2) mg/dL HCG, Quant 79779 H (0-4) mIU/mL Urine Color (Yellow) Urine Turbidity (Clear) Urine pH (5.0-7.0) Ur Specific [place] (1.003-1.030) Urine Protein (Negative) mg/dL Urine Glucose (UA) (Negative) mg/dL Urine Ketones (Negative) mg/dL Urine Blood (Negative) Urine Nitrite (Negative) Ur Reducing Substances Urine Bilirubin (Negative) Urine Ictotest Urine Urobilinogen (<2.0) mg/dL Ur Leukocyte Esterase (Negative) Urine WBC (Auto) (0.0-6.0) /HPF Urine RBC (Auto) (0.0-6.0) /HPF U Epithel Cells (Auto) (0-13.0) /HPF Urine Mucus /HPF Urine HCG, Qual (Negative) 10/10/18 Range/Units Unknown WBC (4.5-11.0) K/mm3 RBC (3.65-5.03) M/mm3 Hgb (10.1-14.3) gm/dl Hct (30.3-42.9) % MCV (79-97) fl MCH (28-32) pg MCHC (30-34) % RDW (13.2-15.2) % Plt Count (140-440) K/mm3 Lymph % (Auto) (13.4-35.0) % Lyon % (Auto) (0.0-7.3) % Eos % (Auto) (0.0-4.3) % Baso % (Auto) (0.0-1.8) % Lymph # (1.2-5.4) K/mm3 [place] # (0.0-0.8) K/mm3 Eos # (0.0-0.4) K/mm3 Baso # (0.0-0.1) K/mm3 Seg Neutrophils % (40.0-70.0) % Seg Neutrophils # (1.8-7.7) K/mm3 Sodium (137-145) mmol/L Potassium (3.6-5.0) mmol/L Chloride (98-107) mmol/L Carbon Dioxide (22-30) mmol/L Anion Gap mmol/L BUN (7-17) mg/dL Creatinine (0.7-1.2) mg/dL Estimated GFR ml/min BUN/Creatinine Ratio % Glucose (65-100) mg/dL Calcium (8.4-10.2) mg/dL HCG, Quant (0-4) mIU/mL Urine Color Yellow (Yellow) Urine Turbidity Slightly-cloudy (Clear) Urine pH 5.0 (5.0-7.0) Ur Specific [place] 1.025 (1.003-1.030) Urine Protein <15 mg/dl (Negative) mg/dL Urine Glucose (UA) Neg (Negative) mg/dL Urine Ketones Neg (Negative) mg/dL Urine Blood Neg (Negative) Urine Nitrite Neg (Negative) Ur Reducing Substances Not Reportable Urine Bilirubin Neg (Negative) Urine Ictotest Not Reportable Urine Urobilinogen 4.0 (<2.0) mg/dL Ur Leukocyte Esterase Sm (Negative) Urine WBC (Auto) < 1.0 (0.0-6.0) /HPF Urine RBC (Auto) 2.0 (0.0-6.0) /HPF U Epithel Cells (Auto) 10.0 (0-13.0) /HPF Urine Mucus 3+ /HPF Urine HCG, Qual Positive A (Negative) - Medical Decision Making hcg quant is increasing labs unremarkable High specific gravity, not ketones in urine sx improved with ed tx, zofran NS tylenol tolerating po intake prior to d/c - Differential Diagnosis dehydration, hyperemesis, miscarriage, infection Critical Care Time: No Critical care attestation.: If time is entered above; I have spent that time in minutes in the direct care of this critically ill patient, excluding procedure time. ED Disposition Clinical Impression: , Nausea and vomiting during , Dehydration Disposition: OP ADMIT IP TO THIS HOSP Is pt being admited?: Yes Condition: Stable Instructions: Hyperemesis Gravidarum (ED) Additional Instructions: Take the medication as prescribed. Follow-up with your doctor or the doctor/clinic provided. Return is symptoms worsen as indicated by your discharge instructions. Prescriptions: Ondansetron [Zofran Odt] 4 mg PO Q8HR PRN #20 tab.rapdis PRN Reason: Nausea And Vomiting Referrals: EDWARDO MATHEWS MD [Staff Physician] - 3-5 Days Time of Disposition: 15:28
[2018-10-10] MEDS: TYLENOL PO ONE (13:45)
[2018-10-10 15:44] VITALS: BP 124/75
== END 2018-10-10 15:44 | disposition admitted as inpatient to this hospital (09) ==
LOC: ED 11:47
DX: O21.8 Other vomiting complicating pregnancy (principal); O26.891 Other specified pregnancy related conditions, first trimester; E86.0 Dehydration; Z3A.01 Less than 8 weeks gestation of pregnancy; Z79.899 Other long term (current) drug therapy
CPT/HCPCS: 36415; 80048; 81001; 81025; 84702; 85025; 96361; 96374; 99283; J2405; J7030

== ENCOUNTER 2019-02-18 14:40 | Outpatient (CLI) | payer MEDICAID ==
[2019-02-18 15:20] VITALS: BP 101/56
== END 2019-02-18 16:15 | disposition home or self-care (01) ==
LOC: TRG 14:40
PROVIDERS: ATTEND Obstetrics & Gynecology
DX: O47.02 False labor before 37 completed weeks of gestation, second trimester (principal); Z3A.25 25 weeks gestation of pregnancy
CPT/HCPCS: 59025

== ENCOUNTER 2019-03-06 11:41 | Outpatient (CLI) | payer MEDICAID ==
[2019-03-06 12:20] VITALS: BP 109/54
[2019-03-06] MEDS ORDERED: LACTATED RINGERS 1,000 ML IV SCH (13:00)
[2019-03-06 14:08] LABS: Bilirubin,Urine NEG (Negative); Color,Urine Yellow (Yellow)
[2019-03-06 14:09] LABS: Bacteria,Urine 1+ /HPF (Negative); Blood,Urine NEG (Negative); Mucus,Urine 1+ /HPF; Protein,Urine <15 mg/dL mg/dL (Negative); Urobilinogen,Urine < 2.0 mg/dL (<2.0); WBC,Urine < 1.0 /HPF (0.0-6.0)
== END 2019-03-06 15:12 | disposition home or self-care (01) ==
LOC: TRG 11:41
PROVIDERS: ATTEND Obstetrics & Gynecology
DX: O26.893 Other specified pregnancy related conditions, third trimester (principal); M54.5 Low back pain; R10.9 Unspecified abdominal pain; R25.2 Cramp and spasm; O21.2 Late vomiting of pregnancy; O47.03 False labor before 37 completed weeks of gestation, third trimester; Z3A.28 28 weeks gestation of pregnancy
CPT/HCPCS: 59025; 81001; 96360; 96361; J7120

== ENCOUNTER 2019-03-13 13:59 | Outpatient (CLI) | payer MEDICAID ==
[2019-03-13 14:26] VITALS: BP 123/75
[2019-03-13 14:44] LABS: Bilirubin,Urine NEG (Negative); Blood,Urine NEG (Negative); Color,Urine Yellow (Yellow); Protein,Urine <15 mg/dL mg/dL (Negative); Urobilinogen,Urine < 2.0 mg/dL (<2.0)
[2019-03-13 14:53] LABS: Bacteria,Urine 1+ /HPF (Negative)
[2019-03-13 14:54] LABS: Mucus,Urine Rare /HPF
[2019-03-13] MEDS ORDERED: LACTATED RINGERS 1,000 ML IV SCH (15:00)
== END 2019-03-13 16:22 | disposition home or self-care (01) ==
LOC: TRG 13:59
PROVIDERS: ATTEND Obstetrics & Gynecology
DX: O60.03 Preterm labor without delivery, third trimester (principal); Z3A.29 29 weeks gestation of pregnancy
CPT/HCPCS: 36415; 59025; 81001; 82731; 96360; J7120

== ENCOUNTER 2019-04-07 10:49 | Outpatient (CLI) | payer MEDICAID ==
[2019-04-07 11:35] VITALS: BP 127/74
[2019-04-07] MEDS ORDERED: LACTATED RINGERS 1,000 ML IV ONE (12:18)
[2019-04-07 13:05] LABS: Bilirubin,Urine NEG (Negative); Blood,Urine NEG (Negative); Color,Urine Yellow (Yellow); Protein,Urine <15 mg/dL mg/dL (Negative)
[2019-04-07 13:06] LABS: Bacteria,Urine 1+ /HPF (Negative); Mucus,Urine FEW /HPF; Urobilinogen,Urine < 2.0 mg/dL (<2.0)
[2019-04-07] MEDS ORDERED: ACETAMINOPHEN 500 MG TAB PO NR (13:30)
--- NOTE | 2019-04-07 16:10 | Ultrasound Report ---
ULTRASOUND BIOPHYSICAL PROFILE ULTRASOUND OB LIMITED INDICATION: SEEMA TECHNIQUE: Transabdominal ultrasound imaging. COMPARISON: None FINDINGS: breathing movement = 2 Gross body movement = 2 tone = 2 Qualitative amniotic fluid volume = 2 Total biophysical score = 8/8 Amniotic fluid index is 13.1 cm. Presentation is cephalic. heart rate is 138 beats per minute. IMPRESSION: biophysical profile equals 8/8. Signer Name: Alvaro Rangel Jr, MD Signed: 04/07/2019 4:06 PM Workstation Name: [id number]
== END 2019-04-07 16:24 | disposition home or self-care (01) ==
LOC: TRG 10:49
PROVIDERS: ATTEND Obstetrics & Gynecology
DX: O26.893 Other specified pregnancy related conditions, third trimester (principal); R10.30 Lower abdominal pain, unspecified; Z3A.32 32 weeks gestation of pregnancy
CPT/HCPCS: 76815; 76819; 81001

== ENCOUNTER 2019-05-19 08:43 | Outpatient (CLI) | payer MEDICAID ==
[2019-05-19 09:13] VITALS: BP 120/79
== END 2019-05-19 10:32 | disposition home or self-care (01) ==
LOC: TRG 08:43
PROVIDERS: ATTEND Obstetrics & Gynecology
DX: O26.893 Other specified pregnancy related conditions, third trimester (principal); R10.2 Pelvic and perineal pain; Z3A.38 38 weeks gestation of pregnancy
CPT/HCPCS: 59025

== ENCOUNTER 2021-09-27 08:49 | Emergency (ER) | payer MEDICAID ==
--- NOTE | 2021-09-27 10:19 | XRay Report ---
XR chest routine 2V INDICATION / CLINICAL INFORMATION: sob. COMPARISON: None available. FINDINGS: SUPPORT DEVICES: None. HEART /PULMONARY VASCULATURE: No significant abnormality. LUNGS / PLEURA: No significant pulmonary or pleural abnormality. No pneumothorax. ADDITIONAL FINDINGS: No significant additional findings. IMPRESSION: 1. No acute findings. Signer Name: Teofilo Villela MD Signed: 09/27/2021 10:14 AM Workstation Name: [id number]
[2021-09-27] MEDS ORDERED: predniSONE 20 MG TAB PO ONE (12:01)
[2021-09-27] MEDS ORDERED: ALBUTEROL 2.5 MG/3 ML NEBU IH ONE (12:01)
--- NOTE | 2021-09-27 12:05 | Emergency Department Report ---
Minor Respiratory - HPI Duration: 3 Days Pain Location: Chest Severity: mild Minor Respiratory: Yes Sore Throat, Yes Able to Tolerate Fluids, Yes Cough, No Rhinorrhea, No Ear Pain, No Sick Contacts, No Hemoptysis, No Chest Pain, No Shortness of Breath, No Fever Other History: 35 YO COMES TO ER WITH COUGH AND CONGESTION FOR 3 DAYS. NO FEVER. NO PURULENT SPUTUM. AMBULATORY AND NON ILL APPEARING. IS COVID IMMUNIZED <MIGUEL STEVENS - Last Filed: 09/27/21 12:01> <KODY MORGAN - Last Filed: 09/27/21 13:52> - HPI Chief Complaint: Upper Respiratory Infection Stated Complaint: CHEST PAIN/COUGH/TROUBLE BREATHING Time Seen by Provider: 09/27/21 10:20 ED Review of Systems ROS: Stated complaint: CHEST PAIN/COUGH/TROUBLE BREATHING Other details as noted in HPI Comment: All other systems reviewed and negative <MIGUEL STEVENS - Last Filed: 09/27/21 12:01> ROS: Stated complaint: CHEST PAIN/COUGH/TROUBLE BREATHING Other details as noted in HPI <KODY MORGAN - Last Filed: 09/27/21 13:52> ED Past Medical Hx - Past Medical History Previous Medical History?: Yes Hx Hypertension: No Hx Diabetes: No Hx Deep Vein Thrombosis: No Hx Renal Disease: No Hx Sickle Cell Disease: No Hx Headaches / Migraines: Yes Hx Seizures: No Hx Asthma: No Hx HIV: No - Social History Smoking Status: Never Smoker <MIGUEL STEVENS - Last Filed: 09/27/21 12:01> <KODY MORGAN - Last Filed: 09/27/21 13:52> - Medications Home Medications: Home Medications Medication Instructions Recorded Confirmed Last Taken Type Benzonatate [Tessalon Perles] 100 mg PO Q12H PRN #20 capsule 09/27/21 Unknown Rx Cetirizine HCl [ZyrTEC] 10 mg PO DAILY #30 capsule 09/27/21 Unknown Rx Fluticasone [Flonase] 1 spray NS QDAY #1 bottle 09/27/21 Unknown Rx predniSONE [Deltasone] 20 mg PO DAILY #5 tablet 09/27/21 Unknown Rx Minor Respiratory Exam - Exam General: Vital signs noted. No distress. Alert and acting appropriately. HEENT: Yes Pharyngeal Erythema, Yes Moist Mucous Membranes, Yes Rhinorrhea, Yes Frontal Tenderness, Yes Maxillary Tenderness, No Pharyngeal Exudates, No Conjuctival Injection Ear: Neither TM Bulge, Neither TM Erythema, Neither EAC Pain, Neither EAC Discharge Neck: Yes Adenopathy, Yes Supple Lungs: Yes Good Air Exchange, Yes Wheezes, No Ronchi, No Stridor, No Cough, No Labored Respirations, No Retractions, No Use of Accessory Muscles, No Other Abnormal Lung Sounds Heart: Yes Regular, No Murmur Abdomen: Yes Normal Bowel Sounds, No Tenderness, No Peritoneal Signs Skin: No Rash, No Edema Neurologic: Alert and oriented, no deficits. Musculoskeletal: Unremarkable. <MIGUEL STEVENS - Last Filed: 09/27/21 12:01> - Exam General: Vital signs noted. No distress. Alert and acting appropriately. Neurologic: Alert and oriented, no deficits. Musculoskeletal: Unremarkable. <KODY MORGAN - Last Filed: 09/27/21 13:52> ED Course Vital Signs 09/27/21 09:17 Temperature 98.3 F Pulse Rate 85 Respiratory 14 Rate Blood Pressure 122/78 O2 Sat by Pulse 96 Oximetry <MIGUEL STEVENS - Last Filed: 09/27/21 12:01> Vital Signs 09/27/21 09/27/21 09/27/21 09:17 12:47 12:56 Temperature 98.3 F 98.6 F 98.5 F Pulse Rate 85 66 62 Respiratory 14 16 16 Rate Blood Pressure 122/78 Blood Pressure 118/78 122/78 [Right] O2 Sat by Pulse 96 98 98 Oximetry <KODY MORGAN - Last Filed: 09/27/21 13:52> ED Medical Decision Making - Radiology Data Radiology results: report reviewed, image reviewed NAP - Medical Decision Making Vital Signs 09/27/21 09:17 Temperature 98.3 F Pulse Rate 85 Respiratory 14 Rate Blood Pressure 122/78 O2 Sat by Pulse 96 Oximetry XRAY NAP DUONEB AND PREDNISONE STARTED IN ER DC HOME WITH DC PLAN OF CARE INCLUDING DIET, MEDS, ACTIVITY AND FOLLOW UP. PT VERBALIZES UNDERSTANDING OF PLAN OF CARE. - Differential Diagnosis URI <MIGUEL STEVENS - Last Filed: 09/27/21 12:01> - Medical Decision Making Patient was managed independently by the mid level below , I was available for consult but i wasn't directly involved in the care of this patient <KODY MORGAN - Last Filed: 09/27/21 13:52> Critical care attestation.: If time is entered above; I have spent that time in minutes in the direct care of this critically ill patient, excluding procedure time. <MIGUEL STEVENS A - Last Filed: 09/27/21 12:01> Critical care attestation.: If time is entered above; I have spent that time in minutes in the direct care of this critically ill patient, excluding procedure time. <KODY MORGAN - Last Filed: 09/27/21 13:52> ED Disposition Is pt being admited?: No Does the pt Need Aspirin: No Time of Disposition: 12:03 <MIGUEL STEVENS A - Last Filed: 09/27/21 12:01> Is pt being admited?: No Does the pt Need Aspirin: No <KODY MORGAN - Last Filed: 09/27/21 13:52> Clinical Impression: URI (upper respiratory infection) Disposition: 01 HOME / SELF CARE / HOMELESS Condition: Stable Instructions: Upper Respiratory Infection, Adult, [id number], Chronic B ronchitis (ED) Additional Instructions: MEDS ORDERED TODAY FOLLOW UP WITH PCP IN 72 HOURS TO BE SURE YOU ARE BETTER MOTRIN OR TYLENOL FOR PAIN OR FEVER STAY WELL HYDRATED WITH WATER Prescriptions: predniSONE [Deltasone] 20 mg PO DAILY #5 tablet Fluticasone [Flonase] 1 spray NS QDAY #1 bottle Benzonatate [Tessalon Perles] 100 mg PO Q12H PRN #20 capsule PRN Reason: Cough Cetirizine HCl [ZyrTEC] 10 mg PO DAILY #30 capsule Referrals: VINEET CLEVELAND MD [Primary Care Provider] - 3-5 Days Forms: Work/School Release Form(ED)
[2021-09-27 12:57] VITALS: BP 122/78
== END 2021-09-27 12:49 | disposition home or self-care (01) ==
LOC: ED 08:49
DX: J06.9 Acute upper respiratory infection, unspecified (principal); G43.909 Migraine, unspecified, not intractable, without status migrainosus
CPT/HCPCS: 71046; 94640; 99283